=== PATIENT | male | born 1945 | race Caucasian/White ===

== ENCOUNTER 2017-09-24 01:10 | Outpatient (RCR) | payer BC, SELFPAY ==
[2017-09-24] MEDS: Normal Saline Flush 10 ML SYR IVP (10:30)
== END 2017-10-17 ==
LOC: INF 01:45
PROVIDERS: PCP Internal Medicine; Visit Provider Family Medicine
DX: C18.7 Malignant neoplasm of sigmoid colon (principal)
CPT/HCPCS: 96365